=== PATIENT | male | born 1935 | race Caucasian/White ===

== ENCOUNTER 2016-04-28 17:03 | Emergency (ER) | payer MEDICARE ==
[~2016-04-28] VITALS: Ht 172.7 cm; Wt 79.5 kg
[2016-04-28 17:14] VITALS: BP 138/89; PULSE 76; RESP 16; O2SAT 96
--- NOTE | 2016-04-28 17:17 | ED.REPORT ---
HPI-Extremity Problem Upper Date of Service Apr 28, 2016 ED Provider: History of Present Illness: 80-year-old male here for left hand pain. He fell about noon today, 5-1/2 hours ago. He landed on his left hand on the palm and his fingers bent backwards. He also bumped his head on the concrete. He has a contusion on his left forehead area. he denies dizziness, loss of consciousness, visual symptoms, vomiting or any other neuro complaints. He had full range of motion of his left hand right after the fall but after [place] his hand has increased in pain, bruising,and swelling. No previous hand injuries. He has no elbow pain. He denies headache as well. Not on blood thinners. Nursing Notes Stated Complaint: GLF, L/HAND INJURY Chief Complaint: Extremity Trauma Nursing Notes Reviewed: Yes Allergies: Coded Allergies: No Known Allergies (Unverified , 04/28/16) General Time Seen by MD: 17:16 Chief Complaint Hand Injury left pain 3-4 metacarpals and digits L side Hx Obtained From: Patient, Spouse Arrived By: Walk-in Onset Occurred: 1 - 4 hours ago Caused by: Accidental Location: : Hand left Quality: Painful Severity: Current: Mild Severity: Maximum: Mild Additional Notes: head contusion but denies WOLFE Pertinent Negative: Pt denies other symptoms Exacerbated by: Range of motion Relieved by: Rest Immunizations: All up to date Recent Healthcare: No recent doctor visit Similar Sx Previous: No Review of Systems Review of Systems Note: L hand pain Basic Review of Systems Eyes: Vision NL ENT: Hearing NL Respiratory: No shortness of breath Cardiovascular: No chest pain, No dyspnea on exertion Psychiatric: Normal thought content Musculoskeletal: Reports: Joint pain, Joint swelling Skin: Reports Bruising, Reports Swelling Complete sys rev & neg: except as marked. Physical Exam Initial Vital Signs Vital Signs (First) Date Time Temp Pulse Resp B/P Pulse Ox O2 Delivery O2 Flow Rate FiO2 04/28/16 17:14 36.8 76 16 138/89 96 Room Air Initial VS: Reviewed, Vital signs normal General/Constitutional: Well-developed, Well-nourished Head / Eyes: Atraumatic, Normocephalic, PERRL ENT: Mucous membranes moist, Conjunctiva normal, No scleral icterus Neck: Supple, Non-tender, Full range of motion Respiratory: Breath sounds normal, Clear to auscultation, No respiratory distress Cardiovascular: Regular rate & rhythm, Heart sounds normal, Intact distal pulses Skin: Warm, Dry, No cyanosis Neurologic: Alert, Oriented, Nonfocal Psychiatric: Mood/affect normal, Behavior normal, Normal thought content Left Hand: Positive: Ecchymosis present, ROM reduced, Swelling present..., Tenderness present... (Moderate) metacarpals 4-5 tender and swollen with ecchymosis, mild swelling #3. Tender 4th digit. Swelling to 3-5 digits throughout. ecchymosis to digits 3-5. Limited ROM to 3-5 digits and hand/wrist r/t pain and swelling Interpretation & Diagnostics Interpretation & Diagnostics: IMPRESSION: Mildly displaced intra-articular fracture of the volar base of the fourth middle phalanx. Procedures Splint Post-Application Eval Extremity Condition: Cap refill < 2 sec, Distal sensation intact Re-Eval/Medical Decision Med Decision/Clinical Course Post-splinting check of hand shows good blood flow to fingertips area patient states decreased pain. Discussed discharge and follow-up with PCP early next week Discharge & Departure Shift Change Sign-Out Imaging Studies: Imaging discussed Impression: Primary Impression: Fracture of phalanx of finger, closed Encounter type: initial encounter Finger: ring finger Phalanx: proximal Fracture alignment: nondisplaced Laterality: left Qualified Code: S62.645A - Nondisplaced fracture of proximal phalanx of left ring finger, initial encounter for closed fracture Additional Impression: Sprain of wrist, left Encounter type: initial encounter Qualified Code: S63.502A - Unspecified sprain of left wrist, initial encounter Discharge Condition All VS Reviewed: Yes Condition: Stable Patient Instructions: Finger Fracture (ED) Additional Instructions: Wear splint was given to the next few days, then follow up with her primary care for reevaluation of your finger and wrist in 2-3 days. If feeling better you should be transitioned to yuliya taping. Apply ice right over the top of the splint. Take ibuprofen as needed for pain. Return to ER for severe pain. If fingers become numb and tingly remove splint and return to ER. EDSupervising Provider for APC: Flaquito Steve MD, Linnea K ARNP Apr 28, 2016 17:17
--- NOTE | 2016-04-28 17:49 | DRSVH ---
PROCEDURE: X-RAY LEFT HAND, MINIMUM THREE VIEWS ([id number]) INDICATIONS: 80 year-old male with left fourth finger pain after ground level fall. TECHNIQUE: 3 views of the hand(s) acquired. COMPARISON: None. FINDINGS: Bones: There is a mildly displaced intra-articular fracture involving the volar base of the fourth mi ddle phalanx, best seen on the lateral projection. Other bones appear intact. Carpal bones are reina lly aligned. No suspicious bony lesions. Soft tissues: No suspicious soft tissue calcifications. IMPRESSION: Mildly displaced intra-articular fracture of the volar base of the fourth middle phalanx. Dictated by: Samy Estes M.D. on 04/28/2016 at 17:46 Approved by: Samy Estes M.D. on 04/28/2016 at 17:47
[2016-04-28 19:09] VITALS: BP 142/81; PULSE 87; RESP 16; O2SAT 94
[2016-04-28 19:13] VITALS: BP 142/81; PULSE 87; RESP 16; O2SAT 94
== END 2016-04-28 19:04 | disposition home or self-care (01) ==
LOC: SED 17:03
DX: S62.615A Displaced fracture of proximal phalanx of left ring finger, initial encounter for closed fracture (principal); S63.502A Unspecified sprain of left wrist, initial encounter; W10.1XXA Fall (on)(from) sidewalk curb, initial encounter; Y93.89 Activity, other specified; Y92.009 Unspecified place in unspecified non-institutional (private) residence as the place of occurrence of the external cause; Y99.8 Other external cause status